=== PATIENT | female | born 1960 | race Caucasian/White ===

== ENCOUNTER 2018-07-06 09:27 | Outpatient (CLI) | payer OTHER ==
--- NOTE | 2018-07-06 19:04 | Diagnostic Imaging Report ---
CAMILA PACK [facility] [address] [facility] [address] [address] Report Submission Date: Jul 06, 2018 2:15:25 PM MEDICAL SCIENCE LIAISON Patient Study Name: BEST COREY Date: Jul 06, 2018 9:34:22 AM MEDICAL SCIENCE LIAISON Modality Type: DX Gender: F Description: LOWER EXTREMITY : 60 Institution: [facility] Physician: CAMILA PACK Examination: Plain film left foot History: X -ray ankle fx x1 year ago medial knot 1st digit foot pain Findings: 3 weight bearing views of the foot demonstrates scattered articular degenerative changes: most pronounced involving the 1st metatarsophalangeal articulation. No fracture or dislocation. No soft tissue swelling. No joint effusion. Impression: Advanced 1st digit degenerative changes. No evidence for fracture. Electronically signed on Jul 06, 2018 2:15:25 PM MEDICAL SCIENCE LIAISON by: David BAILON
--- NOTE | 2018-07-06 19:05 | Diagnostic Imaging Report ---
CAMILA PACK [facility] [address] [facility] [address] [address] Report Submission Date: Jul 06, 2018 2:17:04 PM AVIATION TECHNICIAN Patient Study Name: BEST COREY Date: Jul 06, 2018 9:42:18 AM AVIATION TECHNICIAN Modality Type: DX Gender: F Description: LOWER EXTREMITY : 60 Institution: [facility] Physician: CAMILA PACK Examination: Plain film right ankle History: X-ray Evaluate for soft tissue mass osseous? Right lower medial leg Findings: 3 weight bearing views of the right ankle demonstrates normal cortical margins. No fracture or dislocation. Posterior calcaneal spur. Talar dome is intact. No soft tissue swelling. No joint effusion. Impression: No acute appearing osseous abnormality. Electronically signed on Jul 06, 2018 2:17:04 PM AVIATION TECHNICIAN by: David BAILON
== END 2018-07-06 09:30 ==
LOC: RAD 09:27
PROVIDERS: ATTEND Podiatrist Foot & Ankle Surgery
DX: M79.9 Soft tissue disorder, unspecified (principal); M20.22 Hallux rigidus, left foot; M24.175 Other articular cartilage disorders, left foot
CPT/HCPCS: 73610; 73630

== ENCOUNTER 2018-07-13 13:16 | Outpatient (CLI) | payer OTHER ==
--- NOTE | 2018-07-18 11:22 | History and Physical Report ---
CHIEF COMPLAINT: Left great toe joint pain, especially at the bump, and very limited range of motion. HISTORY OF PRESENT ILLNESS: The patient, for quite some time now, has been developing an osseous bump on the left great toe metatarsophalangeal joint. This has become quite large over the metatarsal head and painful and irritating in her shoes. Despite trying some conservative things, she has been unable to relieve the pain there and it is quite irritated frequently. This is definitely causing problems and difficulty in her life and she would like to know options to remove the bump at this time. The patient has had conservative and surgical options discussed. Unfortunately, any sort of conservative option will not relieve the rubbing and the bump pain that she has. Neither will these help with the very limited range of motion in that toe joint. Surgical options were discussed consisting of either an aggressive cheilectomy or a joint replacement of the metatarsophalangeal joint. The patient had a discussion regarding one surgery versus the other and the likelihood of needing an additional surgery later in life to replace a toe joint replacement again or considering fusion or going from a cheilectomy to later on in life to some sort of joint destructive procedure due to advanced hallux rigidus in the near future. X-rays were discussed and visualized together demonstrating very minimal to almost no joint space with bone on bone present at this time, as well as large exostosis overlying the joint dorsal medially for the most part. There is also exostosis noted at the base of the proximal phalanx. The patient understood these things and has elected to go forward with surgery at this time to do a joint replacement. Consent was signed and placed in the chart after discussing all the risks and benefits. The patient does not admit to any fevers, chills, nausea, vomiting, shortness of breath, or chest pain at this time. PAST MEDICAL HISTORY: 1. The patient admits maybe having high cholesterol but that she is not on any medications. 2. She also admits a history of vertigo but nothing for a long time now. She does not have a primary care doctor and seems to be very much one who does not go to the doctor. PAST SURGICAL HISTORY: At age 35, she had a tonsillectomy without any issues. CURRENT MEDICATIONS: Vitamin D 1000 mg daily. That is all she is taking. She denies any other herbal supplements or diet drugs. ALLERGIES AND REACTIONS: None. 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 She denies using any sort of recreational drugs at this time or ever. She also denies any sort of alcohol or tobacco use. FAMILY HISTORY: Consists of her father having a brain aneurysm and passing away at 64 years old and her mother passing away at 72 years old of renal cell carcinoma. REVIEW OF SYSTEMS: All are negative, as she does not have any pain in her head. No vision changes. No palpitations, chest pain, trouble breathing, pain with urination or bowel movements, blood in her urine or bowel movements, nerve pain, skin rashes, throat pain, or any other sort of problems in eyes, ears, nose, throat, etc. The patient denies any sort of psychiatric history. PERTINENT MEDICAL EXAMINATION: Vital Signs: T: 97.4 degrees Fahrenheit, Heart rate: 81, R: 16, BP: 133/79. Head: She is atraumatic and normocephalic. She does not have any obvious signs of drainage from her nose or ears, no masses or lesions noted in those areas that are visible from the outside. There are no ocular changes upon visual exam. Neck: There are no palpable lymph nodes noted in the neck and her trachea seems midline. Lungs: Clear to auscultation bilaterally. Heart: Normal S1 and S2 sounds without any signs of atrial fibrillation. Mental Status: Alert and oriented x3. Focused Lower Extremity Exam: Vascular: There are 2+ DP and PT pulses of the left foot. Capillary refill time is less than 3 seconds to the toes of the left foot. No edema of the left foot. Dermatologic: There is no hyperkeratosis or open lesions noted. There is a moderate red irritation noted over the dorsal medial aspect of the 1st metatarsal head where the osseous bump is noted. This is not warm and does not appear to be more than irritation from rubbing in shoes. Musculoskeletal: There is a prominent dorsal osseous eminence over the 1st metatarsal head of the left foot, more so dorsal medial. There is not really any medial eminence noted. The first ray is fairly rectus of the left foot. There is 5/5 muscle strength to the ankle and subtalar joint of the left foot. There is actually no pain with range of motion of the first metatarsophalangeal joint; however, there is very limited motion noted, maybe 15 to 20 degrees total range of motion. The patient has mild hypermobility at the TMT joint which is causing a first ray elevatus upon my exam which is likely causing the jamming of the joint from the toe, which is creating a bump and also limited range of motion combined with the lack of joint space on x-ray. This was all discussed with the patient today. Neurologic: Light touch sensation is intact to the toes of the left foot. ASSESSMENT: Hallux rigidus of left foot. M20.22. PLAN: As mentioned above, a conservative and surgical discussion was held with the patient. I do not believe any conservative treatment will be enough assistance at all to the patient to overcome the pain she is having. This has been quite uncomfortable for the patient for a while. I believe that when comparing an aggressive cheilectomy now, as well as a later-on replacement or fusion of the joint due to progressive arthritis versus a total joint replacement now that will last her a lot longer before potentially needing another joint replacement or fusion, these were both discussed with the patient. I discussed both of these options with the patient and I believe both options are sound. I believe that a total joint replacement is likely better in order to prolong her need for a second surgery by several years. I believe otherwise with just an aggressive cheilectomy, she will need surgery again soon for joint pain that is likely to progress in the nearer future than a joint replacement that could wear out over several years. The patient understands these things and after discussing the risks and benefits of surgery for a total joint replacement that include, but are not limited to, bleeding, infection, undercorrection, overcorrection, abnormal deviation in the toe, numbness, loss of limb, and loss of life, the patient has agreed both by verbal and written consent to go forward with surgery at this time. Not all those risks were discussed with the patient but most of them were and she understands that there are more that were not discussed that are a possibility. Again, the patient signed the consent and it was placed in the chart. A preoperative discussion was held with the patient discussing preoperative, intraoperative, and postoperative planning. The patient understands that we are doing a total joint replacement and that she will be under a MAC anesthesia with local. She understands that the anesthesiologist has the right to switch to a general anesthesia if needed. The patient was given preoperative reading to do in preparation for surgery and she will receive a phone call from the pre-op nurse the day before to discuss any other questions. She knows she will be placed in an ortho boot for 3 to 6 weeks at least. The nurse had discussed with her not eating or drinking anything before midnight the night before, as well as avoiding any other sort of medication, which she does not take anyway at this time. The patient had no further questions at this time and felt very grateful for a very detailed discussion that she states she has never received prior to surgery before. The patient had no further questions and looked forward to surgery next week. The patient knows that she has labs ordered including a CBC, CMP, and imaging, and an EKG due to her age. The patient knows she will obtain these a day or 2 before surgery once we have the surgery time and date determined for sure. We are looking at doing the surgery likely next week on July 20. We will likely have this follow the first case that morning, hopefully, at around 9:30. We will do another day if needed, however. A descriptive/illustrative discussion and demonstration of her planned surgery was also given and reviewed and she signed that as well that we had reviewed that in depth and detail together. I believe extensive consent was discussed and obtained today. The patient was happy with the discussion. We will see the patient next week. UVALDO
== END 2018-07-13 13:18 ==
LOC: POD 13:16
PROVIDERS: ATTEND Podiatrist Foot & Ankle Surgery
DX: M20.22 Hallux rigidus, left foot (principal)
CPT/HCPCS: 99213

== ENCOUNTER 2018-07-17 09:38 | Outpatient (CLI) | payer OTHER ==
[2018-07-17 10:27] LABS: eGFR (Non-African) > 60
[2018-07-17 10:38] LABS: BASOPHILS % 0.3 (0.0-1.5); EOSINOPHILS % 3.7 % (0.0-6.8); MONOCYTES % 7.9 % (0.0-11.0)
[2018-07-17 10:39] LABS: NEUTROPHILS # 2.4 # k/uL (1.4-7.7)
== END 2018-07-17 09:40 ==
LOC: LAB 09:38
PROVIDERS: ATTEND Podiatrist Foot & Ankle Surgery
DX: M20.12 Hallux valgus (acquired), left foot (principal); Z01.812 Encounter for preprocedural laboratory examination; Z01.810 Encounter for preprocedural cardiovascular examination
CPT/HCPCS: 36415; 80053; 85025

== ENCOUNTER 2018-07-21 07:09 | Day surgery (SDC) | payer OTHER ==
--- NOTE | 2018-07-27 10:03 | OP Clinic Progress Note ---
SUBJECTIVE: Patient, Mae Arellano, presented for surgery for a 1st metatarsophalangeal joint arthroplasty with implant on the left foot and the patient called the night before to discuss concerns about whether or not we needed to do a joint replacement or if we could just clean up the joint. Efforts were made the morning of surgery as early as possible to contact her insurance company to confirm a different CPT code in case we needed to just do a cheilectomy of that joint with possible arthroplasty with implant based on an intraoperative decision. The patient wanted that to be the case and a new consent was completed and contact with the insurance company was done. After waiting for a little while to hear back from the front office secretary who was contacting the insurance company, I was pulled aside and notified that although we recently had done an automated approach to seeing if we needed prior authorization for the original CPT code for the arthroplasty, we tried to do the automated approach again and were connected with a fulfillment representative who then looked at the patient's insurance and stated that because she has EPO [employer] instead of a PPO, our surgical services are considered out of network and the patient would not have coverage for surgery today. This is against what the automated system told us for the initial CPT code that was run earlier that week or the previous week. Efforts were made for quite some time by many individuals to call the insurance company to try and find out if that were in fact true and also to find out if there was a lilly lyles option and we were unable to get approval for surgery from the insurance company and therefore, the only option was a lilly lyles option which was shared with the patient and it was too high at this time. The patient had been sitting in pre-op waiting with a saline lock and was ready for surgery; however, due to insurance issues that morning that were unforeseen by anyone and against what was initially suggested based on the automated prior authorization process that we go through anyway, we found out that this was in fact not covered and also that prior authorization was required for both of the CPT codes, which is also against what we were told on the automated system at least regarding the first CPT code. All of this was discussed with the patient in detail and her . They were grateful for our efforts and requested that we offer any suggestions for alternatives for other providers that may be able to try and get her in for surgery before next week on Tuesday, when her insurance changes on that Tuesday. Alternative options were given, such as Dr. Goldsmith or Dr. Hernandez. I made a personal text and phone conversation with Dr. Goldsmith to explain the situation and he stated that he believed Dr. Hernandez would be able to do it and all information for labs, as well as imaging on CD's of foot and ankle films and EKG were being provided for the patient to knot picker cloth or fax (labs to fax and imaging to knot picker cloth on CD). On Tuesday, the patient tried to contact and arrange this and it sounds like they were unable to get the patient in based on what I heard. A request was made that we call the insurance as the patient's done so again and was told that they may be able to expedite a special permission to be able to get surgery covered at our facility despite not having [id number] coverage for surgery in any way, but that they may be able to get it covered if we get the permission granted. We spent about an hour on the phone this morning with insurance discussing this and giving CPT codes and Tax ID code, etc. and we were notified that we have to wait until tomorrow to call again in order to ask them to expedite. We questioned why that needed to be done and why they could not just begin the process now, as we are on a time crunch, and they stated that it was policy the couple of times we questioned them about this. We notified them that we would call again tomorrow morning to expedite everything. We were given the information needed to reference this call, which was not a reference ID#, but rather information that would help them reference the call when we called tomorrow. The patient was called and her was notified regarding our conversation with insurance and he subsequently called the insurance at our encouragement and then called us back to say that he heard the same thing regarding expediting and the need to call back tomorrow. We both shared frustration in the insurance company regarding their automated system not being accurate, as well as the need to call back to expedite things tomorrow despite a long conversation today. The patient and her understand that we are doing everything we can to try and plan for possible surgery this week. In my discussions with the operating room staff, it looks like we may have a hard time getting the patient in on due to it being so busy already with other surgeries that day. I do not believe we will receive any word back from the insurance company until at least Tuesday, if not . I believe the patient understands this and that we are doing everything we can but we may or may not be able to accommodate their request to try and get surgery before the end of the month when their insurance will in fact change and they will have a much higher deductible starting July 28. The patient and her understand these efforts and issues and they seem understanding and grateful for our efforts and we will continue to do everything we can to expedite and see if we can get surgery to happen for this patient and we will update them as soon as we know anything. This was a note just to explain the situation and what happened Tuesday and through today, Tuesday, July 24, 2018, up until this point. We will keep in close contact with the patient and let them know as soon as we hear something. I have also contacted the fulfillment representative to let them know that we may need to do a surgery on and he is on standby to have equipment sent here as soon as we know something. They are also working on making sure a fulfillment representative will be there as needed for the implant. UVALDO
== END 2018-07-21 09:40 | disposition home or self-care (01) ==
LOC: OPSURG 07:09
PROVIDERS: ATTEND Podiatrist Foot & Ankle Surgery
DX: Z53.8 Procedure and treatment not carried out for other reasons (principal)